=== PATIENT | female | born 1965 | race Caucasian/White ===

== ENCOUNTER 2017-08-15 07:47 | Day surgery (SDC) | payer OTHER ==
[~2017-08-15] VITALS: Ht 160 cm; Wt 52.2 kg
[~2017-08-15 07:47] MED LIST: CYAN500; GLUC500; Nuvaring Vagin1 EACH; RANI150 PO; Valtrex1000 MG
== END 2017-08-15 11:16 | disposition home or self-care (01) ==
LOC: ORSCSDS 07:47
PROVIDERS: Student in an Organized Health Care Education/Training Program
PROC: 0SRN0JZ Replacement of Left Metatarsal-Phalangeal Joint with Synthetic Substitute, Open Approach (ICD-10-PCS; principal; 2017-08-15 09:00)
DX: M20.22 Hallux rigidus, left foot (principal); M19.072 Primary osteoarthritis, left ankle and foot; M79.672 Pain in left foot; Z79.899 Other long term (current) drug therapy
CPT/HCPCS: C1776; J0330; J1100; J2250; J2370; J2405; J3010; J7120

== ENCOUNTER 2017-11-28 09:19 | Day surgery (SDC) | payer OTHER ==
[~2017-11-28] VITALS: Ht 162.6 cm; Wt 53.0 kg
== END 2017-11-28 12:55 | disposition home or self-care (01) ==
LOC: ORSCSDS 09:19
PROVIDERS: Student in an Organized Health Care Education/Training Program
PROC: 0SRM0JZ Replacement of Right Metatarsal-Phalangeal Joint with Synthetic Substitute, Open Approach (ICD-10-PCS; principal; 2017-11-28 10:30)
DX: M20.21 Hallux rigidus, right foot (principal); M20.11 Hallux valgus (acquired), right foot
CPT/HCPCS: C1776; J1100; J2250; J2405; J7120

== ENCOUNTER → 2020-04-12 | Outpatient (CLI) | payer OTHER | END | disposition home or self-care (01) | LOC: LAB 15:29 → LAB SHORT 15:29 | DX: N30.01 Acute cystitis with hematuria (principal) | CPT/HCPCS: 87077; 87086; 87186 ==

== ENCOUNTER → 2020-04-20 | Outpatient (CLI) | payer OTHER | END | disposition home or self-care (01) | LOC: LAB 14:09 → LAB SHORT 14:09 | DX: R68.89 Other general symptoms and signs (principal) | CPT/HCPCS: 82533; 84443 ==

== ENCOUNTER → 2022-04-04 | Outpatient (CLI) | payer OTHER | LOC: LAB SHORT 08:52 → LAB 08:52 | DX: N39.0 Urinary tract infection, site not specified (principal) | CPT/HCPCS: 87086 ==

== ENCOUNTER → 2022-10-01 | Outpatient (CLI) | payer OTHER | LOC: LAB SHORT 07:47 → PLD 07:47 | DX: D48.5 Neoplasm of uncertain behavior of skin (principal) | CPT/HCPCS: 88304 ==

== ENCOUNTER → 2023-05-11 | Outpatient (CLI) | payer OTHER ==
[2023-05-12 10:58] LABS: Candida species (DNA Probe) Positive (NEGATIVE); G. vaginalis (DNA Probe) Negative (NEGATIVE); T. vaginalis (DNA Probe) Negative (NEGATIVE)
== END ==
LOC: LAB SHORT 15:13 → LAB 15:13
PROVIDERS: Family Medicine
DX: L29.2 Pruritus vulvae (principal)
CPT/HCPCS: 87480; 87510; 87660